=== PATIENT | male | born 1965 | race Two or more races ===

== ENCOUNTER 2017-02-26 19:01 | Emergency (ER) | payer OTHER, SELFPAY ==
[~2017-02-26] VITALS: Ht 175.3 cm; Wt 81.8 kg
[2017-02-26 19:04] VITALS: BP 134/83
[2017-02-26 19:43] LABS: ASPARTATE AMINO TRANSFERASE 27 U/L (15-37); BLOOD UREA NITROGEN 14 mg/dL (7-18)
[2017-02-26 20:26] LABS: RAPID INFLUENZA A Negative (Negative); RAPID INFLUENZA B Negative (Negative)
[2017-02-26] MEDS ORDERED: KETOROLAC 30 MG/1 ML ONE (20:27)
[2017-02-26] MEDS ORDERED: KETOROLAC 30 MG/1 ML IM ONE (20:30)
== END 2017-02-26 21:18 | disposition home or self-care (01) ==
LOC: ED 21:12
DX: S63.501A Unspecified sprain of right wrist, initial encounter (principal); B34.9 Viral infection, unspecified; R05 Cough; J00 Acute nasopharyngitis [common cold]; X58.XXXA Exposure to other specified factors, initial encounter; Y93.89 Activity, other specified; Y92.89 Other specified places as the place of occurrence of the external cause; Y99.9 Unspecified external cause status
CPT/HCPCS: 29125; 36415; 71020; 73110; 80053; 85025; 87400; 93005; 96372; 99285; J1885